=== PATIENT | female | born 2000 | race African-American/Black ===

== ENCOUNTER 2019-07-24 17:24 | Emergency (ER) | payer OTHER ==
[~2019-07-24] VITALS: Ht 165.1 cm; Wt 101.8 kg
[2019-07-24 18:25] VITALS: BP 132/74
== END 2019-07-24 18:30 | disposition home or self-care (01) ==
LOC: ED 18:28
DX: J45.31 Mild persistent asthma with (acute) exacerbation (principal); J02.8 Acute pharyngitis due to other specified organisms; R06.02 Shortness of breath; J45.909 Unspecified asthma, uncomplicated
CPT/HCPCS: 99283

== ENCOUNTER 2019-10-14 10:59 | Emergency (ER) | payer MEDICAID ==
[~2019-10-14] VITALS: Ht 165.1 cm; Wt 104.0 kg
[2019-10-14 11:03] VITALS: BP 116/67
--- NOTE | 2019-10-14 11:16 | NUR ---
PT AMBULATED TO RESTROOM WITH STEADY GAIT AND PROVIDED URINE SAMPLE. UA ORDERED PER PROTOCOL AND SENT TO LAB.
[2019-10-14 11:25] LABS: MICROSCOPIC AUTO
[2019-10-14] MEDS ORDERED: CEFTRIAXONE 250 MG IM ONE (11:30)
[2019-10-14] MEDS ORDERED: AZITHROMYCIN 500 MG TABLET PO ONE (11:30)
[2019-10-14] MEDS ORDERED: AZITHROMYCIN 250 MG TABLET ONE (11:57)
[2019-10-14] MEDS ORDERED: CEFTRIAXONE 250 MG ONE (11:57)
--- NOTE | 2019-10-14 12:10 | NUR ---
MANAGER ADVERTISING PER MAR.
[2019-10-14 12:59] LABS: CLUE CELLS NONE SEEN (NONE SEEN); WET PREP WBCS MANY (FEW)
--- NOTE | 2019-10-14 13:01 | NUR ---
ALL RESULTS ARE BACK AT THIS TIME. CHART UP FOR RECHECK.
[2019-10-14 13:54] LABS: HCG UR SG 1.018 (1.003-1.030)
== END 2019-10-14 13:47 | disposition home or self-care (01) ==
LOC: ED 12:12
DX: A56.09 Other chlamydial infection of lower genitourinary tract (principal); A59.09 Other urogenital trichomoniasis; N89.8 Other specified noninflammatory disorders of vagina; R10.2 Pelvic and perineal pain; Z76.0 Encounter for issue of repeat prescription
CPT/HCPCS: 81001; 81025; 87086; 87210; 87491; 87591; 87808; 96372; 99283; J0696